=== PATIENT | male | born 1980 | race African-American/Black ===

== ENCOUNTER 2017-08-09 16:18 | Emergency (ER) | payer OTHER ==
[~2017-08-09] VITALS: Ht 175.3 cm; Wt 81.6 kg
[2017-08-09] MEDS ORDERED: NKM (16:21)
[2017-08-09 16:22] VITALS: BP 164/90
[2017-08-09] MEDS ORDERED: Neosporin Oint Ud Pkt TOP ONE (16:30)
[2017-08-09] MEDS ORDERED: Acetaminophen 500mg (ES) tab PO ONE (16:30)
[2017-08-09] MEDS ORDERED: Lidocaine/Epi 1% 10ml vial INJ ONE (16:30)
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
[2017-08-09 16:59] LABS: APPEARANCE,URINE CLEAR; KETONES,URINE NEGATIVE (NEGATIVE); LEUKOCYTE ESTERASE ,URINE 1+ (NEGATIVE); NITRITE,URINE NEGATIVE (NEGATIVE); PH,URINE 5 (4.5-8.0); PROTEIN,URINE NEGATIVE (NEGATIVE); UROBILINOGEN,URINE 1 MG/DL (0.0-1.0)
[2017-08-09 17:01] LABS: INR 0.9 (0.9-1.1); PROTHROMBIN TIME 9.8 SEC (9.30-11.50)
[2017-08-09 17:02] LABS: EOSINOPHILS % (AUTO) 1.2 % (0.0-3.0); LYMPHOCYTES % (AUTO) 36.1 % (20.0-45.0); MEAN CORPUSCULAR HEMOGLOBIN 30.1 PG (27.0-31.0); MEAN CORPUSCULAR HGB CONC 31.3 G/DL (32.0-36.0); MEAN CORPUSCULAR VOLUME 96 FL (80-99); MONOCYTES % (AUTO) 7.7 % (1.0-10.0); PLATELET COUNT 180 K/UL (150-450); RED BLOOD COUNT 3.88 M/UL (4.70-6.10); RED CELL DISTRIBUTION WIDTH 12.7 % (11.6-14.8)
[2017-08-09 17:07] LABS: BACTERIA,URINE FEW /HPF; WBC,URINE 0-2 /HPF (0 - 0)
[2017-08-09 17:23] LABS: ALANINE AMINOTRANSFERASE 11 U/L (3-41); ALBUMIN/GLOBULIN RATIO 0.9 (1.0-2.7); ALCOHOL < 10 mg/dL; ANION GAP 15 (5-15); ASPARTATE AMINO TRANSFERASE 16 U/L (5-40); CARBON DIOXIDE 26 mEQ/L (20-30); CHLORIDE 104 mEQ/L (98-107); GLOMERULAR FILTRATION RATE > 60 mL/min (>60); HEMOLYSIS 3; POTASSIUM 3.7 mEQ/L (3.4-4.9); SODIUM 145 mEQ/L (135-145); TOTAL PROTEIN 8.5 g/dL (6.6-8.7)
[2017-08-09 17:57] VITALS: BP 136/73
[2017-08-09 20:00] VITALS: BP 130/86
[2017-08-09 22:10] VITALS: BP 123/75
[2017-08-10 00:37] VITALS: BP 117/66
[2017-08-10] MEDS ORDERED: fentaNYL 100 mcg/2 mL IV ONE ×3 (02:00→03:30)
[2017-08-10 02:40] VITALS: BP 117/75
[2017-08-10 04:00] VITALS: BP 132/88
[2017-08-10] MEDS ORDERED: Morphine Sulfate 4mg/ml Inj IVP ONE (04:00)
[2017-08-10 04:30] VITALS: BP 132/88
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
--- NOTE | 2017-08-14 23:07 | Cardiology Report ---
APPROVED REPORT EKG Measurement Heart [id number] Normal sinus rhythm with sinus arrhythmia Normal ECG
== END 2017-08-10 04:30 | disposition short-term general hospital (02) ==
LOC: EDBD 16:18 → EMR 16:36
DX: S12.400A Unspecified displaced fracture of fifth cervical vertebra, initial encounter for closed fracture (principal); S12.500A Unspecified displaced fracture of sixth cervical vertebra, initial encounter for closed fracture; S12.600A Unspecified displaced fracture of seventh cervical vertebra, initial encounter for closed fracture; S06.0X0A Concussion without loss of consciousness, initial encounter; S02.5XXA Fracture of tooth (traumatic), initial encounter for closed fracture; S02.40FA Zygomatic fracture, left side, initial encounter for closed fracture; V18.0XXA Pedal cycle driver injured in noncollision transport accident in nontraffic accident, initial encounter; Y93.55 Activity, bike riding; Y92.89 Other specified places as the place of occurrence of the external cause; S01.81XA Laceration without foreign body of other part of head, initial encounter; S01.512A Laceration without foreign body of oral cavity, initial encounter; F19.10 Other psychoactive substance abuse, uncomplicated
CPT/HCPCS: 13132; 36415; 70450; 70498; 72125; 80053; 80300; 80329; 81003; 85025; 85610; 85730; 93005; 96374; 96375; 99285; J2270; J2405; J3010; Q9967; Z7502

== ENCOUNTER 2019-10-28 14:52 | Emergency (ER) | payer MEDICAID, OTHER ==
[~2019-10-28] VITALS: Ht 177.8 cm; Wt 81.6 kg
[~2019-10-28 14:52] MED LIST: NKM
[2019-10-28 15:00] VITALS: BP 140/80
--- NOTE | 2019-10-28 15:00 | NUR ---
ED Nurse Note: PT brought in by RA [address] to liquor store for ETOH intoxication.
--- NOTE | 2019-10-28 15:05 | NUR ---
ED Nurse Note: pt wanted to leave. patient alert, oriented x 4.
[2019-10-28 15:12] VITALS: BP 142/76
--- NOTE | 2019-10-28 15:12 | NUR ---
ER DISCHARGE NOTE: Patient is cleared to be discharged per ERPA, pt is aox4, on room air, with stable vital signs. pt was given instructions, pt was able to verbalize understanding, pt id band removed without complications. pt is able to ambulate with steady gait. pt took all belongings.
--- NOTE | 2019-10-28 15:13 | Emergency Room Report ---
History of Present Illness General Chief Complaint: Alcohol Intoxication Present Illness HPI 39 YO male presents to the ED brought by EMS for public intoxication. Pt. currently does not have any medical complaint at this time. He denies pain, open wounds, trauma or fall. Pt. denies dizziness. He reports to drinking this am. Pt. does not want a medical evaluation. He is A & O x 4. and ambulatory without assistance. Allergies: Coded Allergies: No Known Allergies (Unverified , 08/09/17) Patient History Past Medical History: see triage record Past Surgical History: none Pertinent Family History: none Social History: Reports: alcohol use Reviewed Nursing Documentation: PMH: Agreed; PSxH: Agreed Review of Systems All Other Systems: negative except mentioned in HPI Physical Exam Vital Signs Date Time Temp Pulse Resp B/P (MAP) Pulse Ox O2 Delivery O2 Flow Rate FiO2 10/28/19 14:45 97.9 120 16 142/74 (96) 98 Room Air Sp02 EP Interpretation: reviewed, normal General Appearance: no apparent distress, alert, GCS 15, non-toxic Head: normocephalic, atraumatic - no abrasions, bleeding, bruises or swelling. Eyes: bilateral eye normal inspection, bilateral eye PERRL, bilateral eye EOMI ENT: hearing grossly normal, normal voice Neck: full range of motion Respiratory: chest non-tender, lungs clear, normal breath sounds, no respiratory distress, no accessory muscle use, no wheezing, speaking full sentences Cardiovascular #1: regular rate, rhythm, no edema, tachycardia Gastrointestinal: non tender, soft Musculoskeletal: normal range of motion, gait/station normal - without need of assistance Neurologic: alert, motor strength/tone normal, oriented x3 - x [address], [address] , year, and current president., sensory intact, responsive, speech normal Psychiatric: judgement/insight normal, mood/affect normal, other - mild intoxication- pt. able to hold conversation. Plan his mode of transport upon d/ c and even made joke about current president. Skin: no rash, normal color, other - no open wounds or bleeding. no obvious bruises. Medical Decision Making PA Attestation Dr. Conway Is my supervising Physician whom patient management has been discussed with. Diagnostic Impression: Primary Impression: Alcohol abuse ER Course 39 YO male presents to the ED brought by EMS for public intoxication. Pt. currently does not have any medical complaint at this time. He denies pain, open wounds, trauma or fall. Pt. denies dizziness. He reports to drinking this am. Pt. does not want a medical evaluation. He is A & O x 4. and ambulatory without assistance. Pt. presents to the ED intoxicated with alcohol, pt. is NAD, pt. is alert, no obvious signs of trauma, able to ambulate from gurney to restroom, and back. Ddx considered but are not limited to ETOH, Trauma, Syncope, dementia, OD Vital signs: are WNL, pt. is afebrile H&PE are most consistent with ETOH abuse/ intoxication. A & O x4. Pt. allowed me to auscultate lungs and heart. ORDERS: none required at this time -- Pt. refusing evaluation. ED INTERVENTIONS: None at this time. Pt. refused continued observation and rest. He is requesting to be D/C. DISCHARGE: At this time pt. is stable for d/c to home. Will provide printed patient care instructions, and any necessary prescriptions. Care plan and follow up instructions have been discussed with the patient prior to discharge. Last Vital Signs Date Time Temp Pulse Resp B/P (MAP) Pulse Ox O2 Delivery O2 Flow Rate FiO2 10/28/19 14:45 97.9 120 16 142/74 (96) 98 Room Air Disposition: HOME, SELF-CARE Condition: Stable Patient Instructions: Alcohol Intoxication, [id number] Additional Instructions: Take any previously prescribed medications as directed. STOP/ LIMIT alcohol use/ Intake Follow up with a Primary Care Provider in 3-5 days, even if your symptoms have resolved. Review list of alcohol dependence resources. Return sooner to ED if new symptoms occur, or current symptoms become worse. - Please note that this Emergency Department Report was dictated using [employer] and nursery specialist technology software, occasionally this can lead to erroneous entry secondary to interpretation by the dictation equipment. Marybeth Lacey Oct 28, 2019 15:13
== END 2019-10-28 15:12 | disposition home or self-care (01) ==
LOC: EDBD 14:52 → EMR 15:10
DX: F10.10 Alcohol abuse, uncomplicated (principal); Y90.0 Blood alcohol level of less than 20 mg/100 ml
CPT/HCPCS: 99281